=== PATIENT | female | born 1990 | race Asian ===

== ENCOUNTER 2017-10-05 11:59 | Emergency (ER) | payer OTHER ==
[2017-10-05 12:14] VITALS: RESP 16; TEMP 97.9
--- NOTE | 2017-10-05 13:01 | EDPHY ---
H & P Stated Complaint: ABDOMINAL PAIN X 1 YEAR Time Seen by Provider: 10/05/17 13:01 HPI/ROS: CHIEF COMPLAINT: Abdominal pain HISTORY OF PRESENT ILLNESS: The patient presents to the ED with an acute exacerbation of chronic abdominal pain. She has been experiencing mild intermittent right lower quadrant pain for the past year. Over the past several weeks it has been present on a daily basis. It is worsened with movement, flatus and bloating. She denies any vaginal bleeding or discharge. She has denies any complaints of constipation or diarrhea. The patient denies prior surgical history. The patient takes no regular medications. The patient reports that her pain is mild to moderate in nature. REVIEW OF SYSTEMS: A comprehensive 10 point review of systems is otherwise negative aside from elements mentioned in the history of present illness. Source: Patient - Personal History LMP (Females 10-55): 22-28 Days Ago Current Tetanus/Diphtheria Vaccine: Yes Current Tetanus Diphtheria and Acellular Pertussis (TDAP): Yes - Medical/Surgical History Hx Asthma: No Hx Chronic Respiratory Disease: No Hx Diabetes: No Hx Cardiac Disease: No Hx Renal Disease: No Hx Cirrhosis: No Hx Alcoholism: No Hx HIV/AIDS: No Hx Splenectomy or Spleen Trauma: No Other PMH: NONE - Social History Smoking Status: Never smoked - Physical Exam Exam: General Appearance: Alert, no distress Eyes: Pupils equal and round no pallor or injection ENT, Mouth: Mucous membranes moist Respiratory: There are no retractions, lungs are clear to auscultation Cardiovascular: Regular rate and rhythm Gastrointestinal: Abdomen is soft and nontender, no masses, bowel sounds normal Neurological: A&O, normal motor function, normal sensory exam, normal cranial nerves Skin: Warm and dry, no rashes Musculoskeletal: Neck is supple nontender Extremities: symmetrical, full range of motion Constitutional: Initial Vital Signs Temperature (C) 36.6 C 10/05/17 12:11 Heart Rate 81 10/05/17 12:11 Respiratory Rate 16 10/05/17 12:11 Blood Pressure 119/89 H 10/05/17 12:11 O2 Sat (%) 100 10/05/17 12:11 O2 Delivery Mode Room Air Allergies/Adverse Reactions: POLLEN Allergy (Uncoded 10/05/17 12:10) SEAFOOD Allergy (Uncoded 10/05/17 12:10) Home Medications: Medication Instructions Recorded NK [No Known Home Meds] 10/05/17 Medical Decision Making - Diagnostics Imaging Results: Pelvic ultrasound: Images discussed with on-call radiologist Dr. Murguia, possible small included right follicular cyst noted, otherwise no acute pathology. ED Course/Re-evaluation: The patient presents to the ED with a 1 year history of intermittent abdominal pain which has acutely worsened over the past 3 weeks. The patient has mild right lower quadrant tenderness on exam. Laboratory testing demonstrates no evidence of a significant leukocytosis, urinary tract infection or metabolic abnormality. The patient's test is negative. Pelvic ultrasound does demonstrate the possibility of an involuted right ovarian cyst. At this point time I do feel the patient can take ibuprofen as needed for pain management. I would like her to follow up with our on-call cover seamer for further evaluation of her symptoms. The patient is advised to return to the ED for markedly worsening symptoms or other concerns. Differential Diagnosis: Differential diagnosis considered includes ectopic , ovarian cyst, ovarian torsion, ovarian mass, appendicitis - Data Points Laboratory Results: Laboratory Results 10/05/17 13:10 10/05/17 13:10 10/05/17 10/05/17 10/05/17 13:10 13:10 13:10 WBC RBC Hgb Hct MCV MCH MCHC RDW Plt Count MPV Neut % (Auto) Lymph % (Auto) [place] % (Auto) Eos % (Auto) Baso % (Auto) Nucleat RBC Rel Count Absolute Neuts (auto) Absolute Lymphs (auto) Absolute Monos (auto) Absolute Eos (auto) Absolute Basos (auto) Absolute Nucleated RBC Immature Gran % Immature Gran # Sodium 140 mEq/L mEq/L (135-145) Potassium 4.0 mEq/L mEq/L (3.5-5.2) Chloride 104 mEq/L mEq/L (97-110) Carbon Dioxide 24 mEq/l mEq/l (22-31) Anion Gap 12 mEq/L mEq/L (8-16) BUN 10 mg/dL mg/dL (7-23) Creatinine 0.7 mg/dL mg/dL (0.6-1.0) Estimated GFR > 60 Glucose 81 mg/dL mg/dL (70-100) Calcium 9.8 mg/dL mg/dL (8.5-10.4) Beta HCG, Qual NEGATIVE Urine Color PALE YELLOW Urine Appearance CLEAR Urine pH 7.0 (5.0-7.5) Ur Specific [place] 1.003 (1.002-1.030) Urine Protein NEGATIVE (NEGATIVE) Urine Ketones NEGATIVE (NEGATIVE) Urine Blood NEGATIVE (NEGATIVE) Urine Nitrate NEGATIVE (NEGATIVE) Urine Bilirubin NEGATIVE (NEGATIVE) Urine Urobilinogen NEGATIVE EU EU (0.2-1.0) Ur Leukocyte Esterase NEGATIVE (NEGATIVE) Urine Glucose NEGATIVE (NEGATIVE) 10/05/17 13:10 WBC 8.85 10^3/uL 10^3/uL (3.80-9.50) RBC 4.91 10^6/uL 10^6/uL (4.18-5.33) Hgb 14.8 g/dL g/dL (12.6-16.3) Hct 42.5 % % (38.0-47.0) MCV 86.6 fL fL (81.5-99.8) MCH 30.1 pg pg (27.9-34.1) MCHC 34.8 g/dL g/dL (32.4-36.7) RDW 13.2 % % (11.5-15.2) Plt Count 182 10^3/uL 10^3/uL (150-400) MPV 10.8 fL fL (8.7-11.7) Neut % (Auto) 67.6 % % (39.3-74.2) Lymph % (Auto) 22.3 % % (15.0-45.0) [place] % (Auto) 8.8 % % (4.5-13.0) Eos % (Auto) 0.8 % % (0.6-7.6) Baso % (Auto) 0.3 % % (0.3-1.7) Nucleat RBC Rel Count 0.0 % % (0.0-0.2) Absolute Neuts (auto) 5.98 10^3/uL 10^3/uL (1.70-6.50) Absolute Lymphs (auto) 1.97 10^3/uL 10^3/uL (1.00-3.00) Absolute Monos (auto) 0.78 10^3/uL 10^3/uL (0.30-0.80) Absolute Eos (auto) 0.07 10^3/uL 10^3/uL (0.03-0.40) Absolute Basos (auto) 0.03 10^3/uL 10^3/uL (0.02-0.10) Absolute Nucleated RBC 0.00 10^3/uL 10^3/uL (0-0.01) Immature Gran % 0.2 % % (0.0-1.1) Immature Gran # 0.02 10^3/uL 10^3/uL (0.00-0.10) Sodium Potassium Chloride Carbon Dioxide Anion Gap BUN Creatinine Estimated GFR Glucose Calcium Beta HCG, Qual Urine Color Urine Appearance Urine pH Ur Specific [place] Urine Protein Urine Ketones Urine Blood Urine Nitrate Urine Bilirubin Urine Urobilinogen Ur Leukocyte Esterase Urine Glucose Departure - Departure Disposition: Home, Routine, Self-Care Clinical Impression: Pelvic pain in female Condition: Good Instructions: Pelvic Pain in Women (ED) Additional Instructions: 1. Please schedule a follow-up appointment with a cover seamer you have been referred to for further evaluation of your pelvic pain. 2. Return to the ED for markedly worsening pain, fever, vomiting or other concerns. 3. Take Ibuprofen or Motrin 600 mg by mouth three times a day. Referrals: Magaly Mora DO [Doctor of Osteopathy] - As per Instructions
[2017-10-05 13:18] LABS: PLATELET COUNT 182 10^3/uL (150-400)
[2017-10-05 16:14] VITALS: BP 114/83; PULSE 75; O2SAT 99
== END 2017-10-05 16:18 | disposition home or self-care (01) ==
DX: R10.2 Pelvic and perineal pain (principal)

== ENCOUNTER → 2017-10-10 | Outpatient (CLI) | payer OTHER ==
[~2017-10-10] MED LIST: IOPAMIDOL (ISOVUE-300) 100 ML BTL ONE
== END ==
LOC: FIMAGING 11:32
PROVIDERS: ATTEND Physician Assistant
DX: R10.2 Pelvic and perineal pain (principal); N33 Bladder disorders in diseases classified elsewhere; I87.9 Disorder of vein, unspecified
CPT/HCPCS: Q9967

== ENCOUNTER → 2017-12-03 | Outpatient (CLI) | payer OTHER | LOC: FIMAGING 09:14 | PROVIDERS: ATTEND Midwife | DX: R93.8 Abnormal findings on diagnostic imaging of other specified body structures (principal); Z87.42 Personal history of other diseases of the female genital tract ==